=== PATIENT | female | born 1940 | race Caucasian/White ===

== ENCOUNTER 2018-07-23 00:15 | Emergency (ER) | payer MEDICARE ==
[2018-07-23 00:15] VITALS: BMI 27.3
[2018-07-23 00:40] VITALS: RESP 18; TEMP 98.8; O2SAT 99
[2018-07-23 01:18] LABS: HEMOGLOBIN 13.3 g/dL (12.0-16.0); MEAN CELL VOLUME 95.5 fl (81.0-99.0); MEAN CORPUSCULAR HEMOGLOBIN 32.8 pg (27.0-31.0); MEAN CORPUSCULAR HGB CONC 34.3 g/dL (33.0-37.0); RBC 4.05 Mil/uL (3.80-5.20); RED CELL DISTRIBUTION WIDTH 12.7 % (11.5-14.5); WHITE BLOOD COUNT 9.9 K/uL (4.8-10.8)
[2018-07-23 01:24] LABS: PROTHROMBIN TIME 11.7 Seconds (9.8-13.1)
[2018-07-23 01:26] LABS: PARTIAL THROMBOPLASTIN TIME 31.1 Seconds (25.6-37.1)
[2018-07-23 01:30] LABS: BLOOD UREA NITROGEN 20 mg/dl (7-17); CALCIUM 9.6 mg/dL (8.4-10.2); GFR NON-AFRICAN AMERICAN > 60
[2018-07-23] MEDS ORDERED: ceFAZolin 2 GM in Sodium Chloride 0.9% 100 ML IVPB STA (02:17)
[2018-07-23] MEDS ORDERED: Midazolam 2 MG/2 ML VIAL IV ONE (02:18)
[2018-07-23] MEDS ORDERED: Midazolam 2 MG/2 ML VIAL ONE (02:20)
--- NOTE | 2018-07-23 04:07 | ED PDOC ---
Syncope/Near Syncope/Dizziness Time Seen by Provider: 07/23/18 00:29 Chief Complaint (Nursing): Dizziness/Lightheaded History Per: Patient, Family History/Exam Limitations: no limitations Current Symptoms Are (Timing): Still Present Additional Complaint(s): Hx of HTN presenting with dizziness, fall, head injury and arm injury. States that she was going to the bathroom and she felt dizzy and felt backwards, hitting her head and injuring her right wrist. States she's not sure if she lost consciousness or not. Denies blood thinners. PMD: Dr. Doe Past Medical History Vital Signs: Last Vital Signs Temp 98.8 F 07/23/18 00:36 Pulse 79 07/23/18 00:36 Resp 18 07/23/18 00:36 BP 191/152 H 07/23/18 00:36 Pulse Ox 99 07/23/18 00:36 - Medical History PMH: Gastritis, HTN, Hypercholesterolemia, Hyperlipidemia Denies: Anxiety, HIV, Chronic Kidney Disease - Family History Family History: States: Unknown Family Hx - Home Medications Home Medications: Ambulatory Orders Medication Instructions Recorded Fexofenadine/Pseudoephedrine 1 tab PO BID 02/04/16 [Rafia-D 12 Hour Tablet] Loperamide [Imodium] 2 mg PO BID 02/04/16 Losartan [Cozaar] 50 mg PO DAILY 02/04/16 Loratadine [Allerclear] 10 mg PO 09/15/16 Metoprolol Succinate 25 mg PO 09/15/16 amLODIPine [Norvasc] 5 mg PO DAILY 09/15/16 Hydrocodone/Acetaminophen [Vicodin 1 each PO Q8 #15 tablet 07/23/18 Es 7.5-300 mg Tablet] Ibuprofen [Motrin Tab] 600 mg PO Q6 #30 tab 07/23/18 - Allergies Allergies/Adverse Reactions: Allergies Allergy/AdvReac Type Severity Reaction Status Date / Time No Known Allergies Allergy Unverified 11/23/17 10:55 Review of Systems ROS Statement: Except As Marked, All Systems Reviewed And Found Negative Musculoskeletal: Positive for: Arm Pain Physical Exam - Reviewed Nursing Documentation Reviewed: Yes Vital Signs Reviewed: Yes - Physical Exam Appears: Positive for: Well, Non-toxic, No Acute Distress Head Exam: Positive for: ATRAUMATIC, NORMAL INSPECTION, NORMOCEPHALIC Skin: Positive for: Normal Color, Warm, DRY Eye Exam: Positive for: EOMI, Normal appearance, PERRL ENT: Positive for: Normal ENT Inspection Neck: Positive for: Normal, Painless ROM Cardiovascular/Chest: Positive for: Regular Rate, Rhythm Respiratory: Positive for: CNT, Normal Breath Sounds Gastrointestinal/Abdominal: Positive for: Normal Exam, Soft Back: Positive for: Normal Inspection Extremity: Positive for: Other (R distal radius with deformity, swelling; warm and well perfused, able to move fingers, sensation intact; stellate laceration to radial side of wrist, [id number]) Neurologic/Psych: Positive for: Alert, ticketing clerk II-XII, Oriented. Negative for: Motor/Sensory Deficits - Laboratory Results Result Diagrams: 07/23/18 00:04 07/23/18 00:04 Lab Results: PT 11.7 Seconds (9.8-13.1) 07/23/18 00:04 INR 1.0 07/23/18 00:04 APTT 31.1 Seconds (25.6-37.1) 07/23/18 00:04 Troponin I < 0.0120 ng/mL (0.00-0.120) 07/23/18 00:04 - ECG O2 Sat by Pulse Oximetry: 99 Pulse Ox Interpretation: Normal Medical Decision Making Medical Decision Making: Patient presenting with dizziness and fall --Patient hypertense likely secondary to pain response --Will evaluate dizziness with bloodwork including troponin, EKG --Will need reduction- son signed for procedure 2AM --Successful reduction of distal radius fracture 0213 CT Head Findings: Normal size of the ventricles and extra-axial spaces for the patient's age. Normal white matter tracts of the supratentorial brain. Normal basal ganglia and thalami. Normal brainstem. Normal cerebellum. There is no demonstrated extra-axial, intraparenchymal, or intraventricular hemorrhage. There are no findings of an acute ischemic infarction. Normal calvarium. There is no demonstrated fracture. Normal soft tissue structures. Normal visualized paranasal sinuses. IMPRESSION: Normal unenhanced CT scan of the brain. 0214 CT of C-Spine Findings: Mild osteopenia of the bones. Grade 1 anterolisthesis of C7 on T1. There are diffuse spondylotic changes. Findings are demonstrated by disc space narrowing, osteophyte formation and degenerative endplate changes. Facet joint arthropathy is noted. No fracture or dislocation is seen. No aggressive bone lesion is noted. Impression: Spondylosis. Multilevel facet joint arthropathy. No acute bone pathology. 4AM --Patient asleep 645AM --Patient feeling well, ambulated to bathroom --Advised patient and family to followup with Dr. Guevara and ortho, unable to reach Dr. Soares despite multiple calls --Advised to only use vicodin as absolutely necessary given addictive potential and potential to cause dizziness, patient and family understand --Well appearing upon discharge Procedures - Splinting Splint: sugar-tong Pre-Proc Neuro Vasc Exam: normal Post-Proc Neuro Vasc Exam: normal Progress: Procedure: reduction of distal radius fracture Versed 3mg given for comfort and as sedative Patient placed on monitor, IV, O2 Patient was placed in finger traps Traction applied Reduction attempted Post-reduction shows more anatomical alignment Sugar tong splint placed by myself and tech Patient tolerated procedure well - Joint Reduction Reduction Attempts: 1 - Laceration/Wound Repair Right Wrist Wound Length (cm): 1 (1x1x1) Wound's Depth, Shape: superficial Wound Explored: clean Anesthesia: 1% Lidocaine, Lidocaine w/ Epi Volume Anesthetic (ccs): 5 Wound Repaired With: Sutures Suture Size/Type: 5:0 Number of Sutures: 7 Layer Closure?: No Wound Complexity: Simple Disposition - Clinical Impression Clinical Impression: Dizzy spells, Distal radius fracture - Patient ED Disposition Is Patient to be Admitted: No - Disposition Referrals: Dylan Soares MD [Staff Provider] - Disposition: Routine/Home Disposition Time: 06:41 Condition: CRITICAL Prescriptions: Hydrocodone/Acetaminophen [Vicodin Es 7.5-300 mg Tablet] 1 each PO Q8 #15 tablet Ibuprofen [Motrin Tab] 600 mg PO Q6 #30 tab Instructions: Radius Fracture (DC), Dizziness, Nonvertigo, (DC), Taking Narcotics Safely, Opioids for Short-Term Treatment of Pain Forms: [employer] (Spanish) Print Language: SETSWANA
[2018-07-23] MEDS ORDERED: Oxycodone/Acetaminophen 5/325 mg Tab ONE (05:51)
[2018-07-23] MEDS ORDERED: Oxycodone/Acetaminophen 5/325 mg Tab PO STA (06:37)
[2018-07-23 06:40] VITALS: BP 131/59; PULSE 63
--- NOTE | 2018-07-23 07:21 | CARD ---
APPROVED REPORT Date of service: 07/23/2018 EKG Measurement Heart [id number] <Conclusion> Sinus rhythm with premature atrial complexes Otherwise normal ECG
--- NOTE | 2018-07-23 09:18 | RAD ---
Date of service: 07/23/2018 PROCEDURE: Right Wrist Radiographs. HISTORY: R wrist deformity, fall COMPARISON: None. FINDINGS: BONES: There is a comminuted fracture of the distal right radius with ulnar styloid fracture. Major fracture fragment at the distal radius is impacted and distracted laterally prostate 50 percent of the width of the distal radial metaphysis. Carpal bones are intact without fracture or dislocation. JOINTS: No dislocation or subluxation apparent. SOFT TISSUES: Local soft tissue edema surrounds the fracture site. OTHER FINDINGS: Diffuse osteopenia suggests osteoporosis. IMPRESSION: Comminuted distal right radial fracture with impaction and lateral distraction. Ulnar styloid fracture identified. Carpal bones are intact without fracture or dislocation.
--- NOTE | 2018-07-23 09:19 | RAD ---
Date of service: 07/23/2018 PROCEDURE: Right Wrist Radiographs. HISTORY: post reduction COMPARISON: Right wrist radiograph series 07/23/2018 1:03 a.m.. FINDINGS: BONES: Comminuted distal right radial fracture identified with improved positioning status post reduction. Ventral soft tissue edema surrounds the fracture site with ulnar styloid fracture reiterated. Carpal bones remain intact without fracture. JOINTS: No interval subluxation or dislocation. SOFT TISSUES: As above. OTHER FINDINGS: Diffuse osteopenia suggests osteoporosis. IMPRESSION: Interval improvement in distal right radial major fracture fragment positioning status post reduction attempt. No dislocation or subluxation.
--- NOTE | 2018-07-23 09:31 | RAD ---
Date of service: 07/23/2018 HISTORY: dizziness COMPARISON: No prior. FINDINGS: LUNGS: Linear atelectasis or fibrosis left base. No infiltrates bilaterally. PLEURA: No significant pleural effusion identified, no pneumothorax apparent. CARDIOVASCULAR: No aortic atherosclerotic calcification present. Normal cardiac size. No pulmonary vascular congestion. OSSEOUS STRUCTURES: No significant abnormalities. VISUALIZED UPPER ABDOMEN: Normal. OTHER FINDINGS: None. IMPRESSION: No acute cardiopulmonary disease appreciated.
--- NOTE | 2018-07-23 10:49 | CT ---
Date of service: 07/23/2018 PROCEDURE: CT HEAD WITHOUT CONTRAST. HISTORY: head injury COMPARISON: None available. TECHNIQUE: Axial computed tomography images were obtained through the head/brain without intravenous contrast. Radiation dose: Total exam DLP = 877.13 mGy-cm. This CT exam was performed using one or more of the following dose reduction techniques: Automated exposure control, adjustment of the mA and/or kV according to patient size, and/or use of iterative reconstruction technique. FINDINGS: HEMORRHAGE: No intracranial hemorrhage. BRAIN: The byrd-white matter differentiation is well preserved. There is no mass effect or definitive edema pattern appreciated including the cortex. There is limited proportional expansion of the ventriculosulcal and cisternal spaces however in a pattern most compatible with diffuse cerebral atrophy. No suspicious extra-axial fluid collection is identified in the midline brain anatomy appears grossly nonfocal as imaged. VENTRICLES: Unremarkable. No hydrocephalus. CALVARIUM: No destructive bony lesion or displaced fracture identified including through the skullbase. PARANASAL SINUSES: Unremarkable as visualized. No significant inflammatory changes. MASTOID AIR CELLS: Unremarkable as visualized. No inflammatory changes. OTHER FINDINGS: None. IMPRESSION: No acute intracranial findings. No fracture appreciable. Limited diffuse cerebral atrophy is appreciated which is age appropriate. Concordant preliminary report from [facility], 07/23/2018 at 2:13 a.m..
--- NOTE | 2018-07-23 10:58 | CT ---
Date of service: 07/23/2018 PROCEDURE: CT Cervical Spine without contrast HISTORY: dizziness and head injury COMPARISON: None available. TECHNIQUE: Axial computed tomography images were obtained of the cervical spine without the use of intravenous contrast. Coronal and sagittal reformatted images were created and reviewed. Radiation dose: Total exam DLP = 291.46 mGy-cm. This CT exam was performed using one or more of the following dose reduction techniques: Automated exposure control, adjustment of the mA and/or kV according to patient size, and/or use of iterative reconstruction technique. FINDINGS: VERTEBRAE: No fracture. Normal alignment. No destructive bony lesion. DISCS/SPINAL CANAL/NEURAL FORAMINA: Multilevel cervical spondylosis and facet degenerative changes are identified without severe central canal or neural foraminal stenosis appreciated. Limited disc osteophyte complexes at C4-5 and C5-6 result in limited central canal stenoses. PARASPINAL SOFT TISSUES: Unremarkable. OTHER FINDINGS: None. IMPRESSION: 1. No fracture or spondylolisthesis or destructive bony lesion appreciated throughout the cervical spine. Multilevel facet joint degenerative spondylosis and facet arthropathy appear [id number] in severity. 2. Mild degenerative central stenosis C4-5 and C5-6 due to disc osteophyte complexes at these levels. No gross disc herniation identified. MRI can be utilized for follow-up as clinically warranted. Concordant preliminary report from [facility], 07/23/2018, 2:14 a.m..
== END 2018-07-23 07:10 | disposition home or self-care (01) ==
LOC: H.ER 00:15
DX: S52.591A Other fractures of lower end of right radius, initial encounter for closed fracture (principal); R42 Dizziness and giddiness; I10 Essential (primary) hypertension; W18.39XA Other fall on same level, initial encounter
CPT/HCPCS: 24600; 70450; 71045; 72125; 73110; 80048; 84484; 85027; 85610; 85730; 86850; 86900; 93005; 96374; 96375; 99285; J0690; J1885; J2250

== ENCOUNTER 2018-08-09 15:54 | Emergency (ER) | payer MEDICARE ==
[2018-08-09 15:54] VITALS: BMI 27.3
[2018-08-09 16:08] VITALS: RESP 18
[2018-08-09 16:09] VITALS: TEMP 98.4
--- NOTE | 2018-08-09 16:47 | ED PDOC ---
Upper Extremity Pain/Injury Time Seen by Provider: 08/09/18 16:23 Chief Complaint (Nursing): Finger,Hand,&Wrist Chief Complaint (Provider): Finger,Hand,&Wrist History Per: Patient History/Exam Limitations: no limitations Onset/Duration Of Symptoms: Days (x17) Current Symptoms Are (Timing): Still Present Quality: "Pain" Additional Complaint(s): 77 year old female with a history of hypertension and high cholesterol presents to the ED status post fall and fracture of right wrist x17 days ago. Patient was splinted at that time and told to follow up with ortho, but never did. She also has a sutured laceration on right forearm. Sutures have not been removed. At present, she reports swelling of hand and pain in elbow. Patient denies any fever and is able to move fingers. PMD: none provided Past Medical History Reviewed: Historical Data, Nursing Documentation, Vital Signs Vital Signs: Last Vital Signs Temp 98.4 F 08/09/18 16:08 Pulse 71 08/09/18 16:08 Resp 18 08/09/18 16:08 BP 207/79 H 08/09/18 16:08 Pulse Ox 98 08/09/18 16:08 - Medical History PMH: Gastritis, HTN, Hypercholesterolemia, Hyperlipidemia Denies: Anxiety, HIV, Chronic Kidney Disease - Family History Family History: States: Unknown Family Hx - Home Medications Home Medications: Ambulatory Orders Medication Instructions Recorded Fexofenadine/Pseudoephedrine 1 tab PO BID 02/04/16 [Rafia-D 12 Hour Tablet] Loperamide [Imodium] 2 mg PO BID 02/04/16 Losartan [Cozaar] 50 mg PO DAILY 02/04/16 Loratadine [Allerclear] 10 mg PO 09/15/16 Metoprolol Succinate 25 mg PO 09/15/16 amLODIPine [Norvasc] 5 mg PO DAILY 09/15/16 Amoxicillin/Clavulanate [Augmentin 1 tab PO BID 10 Days #20 tab 07/23/18 875 MG-125 MG] Hydrocodone/Acetaminophen [Vicodin 1 each PO Q8 #15 tablet 07/23/18 Es 7.5-300 mg Tablet] Ibuprofen [Motrin Tab] 600 mg PO Q6 #30 tab 07/23/18 traMADol [Ultram] 50 mg PO Q8 #10 tab 08/09/18 - Allergies Allergies/Adverse Reactions: Allergies Allergy/AdvReac Type Severity Reaction Status Date / Time No Known Allergies Allergy Unverified 08/09/18 16:11 Review of Systems ROS Statement: Except As Marked, All Systems Reviewed And Found Negative Musculoskeletal: Positive for: Other (right hand swelling and right elbow pain) Physical Exam - Reviewed Nursing Documentation Reviewed: Yes Vital Signs Reviewed: Yes - Physical Exam Appears: Positive for: No Acute Distress Head Exam: Positive for: ATRAUMATIC, NORMOCEPHALIC Skin: Positive for: Normal Color, Warm, Dry Eye Exam: Positive for: EOMI, Normal appearance, PERRL Extremity: Positive for: Other (sugar tong splint removed, swelling of second to fourth digit and CP area, no erythema. Right forearm: sutures in place, no drainage. Right elbow: ecchymosis and mild tenderness, no erythema. Radial pulse 2/4. Motor and sensor intact.) Neurologic/Psych: Positive for: Alert, Oriented. Negative for: Motor/Sensory Deficits - ECG O2 Sat by Pulse Oximetry: 98 (RA) Pulse Ox Interpretation: Normal Medical Decision Making Medical Decision Making: Time: 1638 --Sutures removed, will wanda-ray wrist and elbow and determine need for reapplication of splint. Discussed with Dr. Mix, pt can be seen by Dr. Torres in office tomorrow. Sugar tong splint to be placed with sling Scribe Attestation: Documented by Niki Norwood, acting as a scribe for Devon Hsieh MD. Provider Scribe Attestation: All medical record entries made by the Scribe were at my direction and personally dictated by me. I have reviewed the chart and agree that the record accurately reflects my personal performance of the history, physical exam, medical decision making, and the department course for this patient. I have also personally directed, reviewed, and agree with the discharge instructions and disposition. Disposition - Clinical Impression Clinical Impression: Distal radius fracture - Patient ED Disposition Is Patient to be Admitted: No - Disposition Referrals: Mariano Torres MD [Medical Doctor] - Disposition: Routine/Home Disposition Time: 17:41 Condition: FAIR Prescriptions: traMADol [Ultram] 50 mg PO Q8 #10 tab Instructions: Radius Fracture Forms: [facility] (Bahraini) Print Language: POLISH
[2018-08-09 17:38] VITALS: BP 186/76; PULSE 66
[2018-08-09] MEDS ORDERED: Tdap Vaccine 0.5 ml Vial (10-64 yrs) IM ONE ×2 (17:39→17:47)
--- NOTE | 2018-08-09 17:48 | RAD ---
Date of service: 08/09/2018 PROCEDURE: Right Wrist Radiographs. HISTORY: 17 days post fx COMPARISON: 07/23/2018 FINDINGS: BONES: Stable findings with respect to comminuted, intra-articular distal radial fracture. Major fracture fragments are anatomically aligned. Stable findings with respect to avulsed ulnar styloid fracture. JOINTS: Normal. No dislocation. SOFT TISSUES: Persistent soft tissue swelling. OTHER FINDINGS: None. IMPRESSION: Stable findings with respect to fractures of distal radius and ulna.
--- NOTE | 2018-08-09 17:51 | RAD ---
Date of service: 08/09/2018 PROCEDURE: Radiographs of the right elbow. HISTORY: s/p fx 17 days ago COMPARISON: No prior. FINDINGS: BONES: Normal. No fracture. JOINTS: Normal. No osteoarthritis. SOFT TISSUES: Normal. JOINT EFFUSION: None. OTHER FINDINGS: None. IMPRESSION: Unremarkable radiographs of the right elbow.
[2018-08-09 18:48] VITALS: O2SAT 99
== END 2018-08-09 18:48 | disposition home or self-care (01) ==
LOC: H.ER 15:54
DX: Z48.02 Encounter for removal of sutures (principal); Z47.89 Encounter for other orthopedic aftercare; E78.00 Pure hypercholesterolemia, unspecified; I10 Essential (primary) hypertension